=== PATIENT | female | born 1945 | race Caucasian/White ===

== ENCOUNTER 2018-09-19 00:40 | Emergency (ER) | payer OTHER, MEDICAID ==
[~2018-09-19] VITALS: Ht 154.9 cm; Wt 90.7 kg
[~2018-09-19 00:40] MED LIST: ATEN100T PO; IRBE150T48 PO; LORA10TA68 PO; MONT10TA22 PO; NAPR375T PO; [UNRECOGNIZED DRUG - OTHER] PO
[2018-09-19 00:45] VITALS: BP_SYST 162
[2018-09-19] MEDS ORDERED: NACL 0.9% 1,000 ML IV ONE (01:29)
[2018-09-19] MEDS ORDERED: MORPHINE 2 MG/ML INJ. SYRINGE IVP ONE (01:30)
[2018-09-19] MEDS ORDERED: ONDANSETRON HCL 4 MG/2 ML VIAL IVP ONE (01:30)
[2018-09-19 01:50] LABS: HEMATOCRIT 39.4 % (36-48); HEMOGLOBIN 12.6 g/dL (12.0-16.0); MEAN CORPUSCULAR HEMOGLOBIN 29 pg (27-31); MEAN CORPUSCULAR HGB CONC 32 % (32-36); MEAN CORPUSCULAR VOLUME 89 fL (79.0-98.0); PLATELET COUNT (AUTO) 425 K/uL (130-430); RED BLOOD CELL COUNT(AUTO) 4.42 MIL/uL (4.2-6.2); RED CELL DISTRIBUTION WIDTH 13.5 % (9.0-15.0); WHITE BLOOD COUNT (AUTO) 6.7 K/uL (4.8-10.8)
[2018-09-19] MEDS ORDERED: MORPHINE 4 MG/ML INJ. SYRINGE IVP ONE (02:00)
[2018-09-19 02:03] LABS: ANION GAP 6 (5-15); CHLORIDE 101 mmol/L (98-107); GLUCOSE 100 mg/dL (70-99); POTASSIUM 3.6 mmol/L (3.5-5.1); SODIUM SERUM 136 mmol/L (136-145); UREA NITROGEN, BLOOD 14 mg/dL (8-21)
[2018-09-19 02:08] LABS: ALANINE AMINOTRANSFERASE 14 U/L (12-78); ALBUMIN 3.1 g/dL (3.4-4.8); ASPARTATE AMINOTRANSFERASE 16 U/L (10-37); LIPASE 120 U/L (73-393); TOTAL BILIRUBIN 0.3 mg/dL (0.0-1.0)
[2018-09-19 02:14] LABS: BILIRUBIN,URINE NEGATIVE (NEGATIVE); BLOOD, URINE NEGATIVE (NEGATIVE); CLARITY/URINE CLEAR (CLEAR); COLOR,URINE YELLOW (YELLOW); GLUCOSE,URINE NEGATIVE (NEGATIVE); KETONES,URINE NEGATIVE (NEGATIVE); LEUKOCYTE ESTERASE ,URINE NEGATIVE (NEGATIVE); NITRITE, URINE NEGATIVE (NEGATIVE); PH,URINE 6.5 (5.0-8.0); PROTEIN URINE NEGATIVE (NEGATIVE); UROBILINOGEN,URINE 0.2 (0.2-1.0)
[2018-09-19 02:29] LABS: ATYPICAL LYMPHOCYTES % 0 % (0-0); BAND % (MANUAL) 0 % (0-6); BASOPHILS % (MANUAL) 0 % (0-2); EOSINOPHILS % (MANUAL) 2 % (0-7); LYMPHOCYTES % (MANUAL) 16 % (20-46); METAMYELOCYTES % 1 % (0-0); MONOCYTES % (MANUAL) 2 % (0-11)
[2018-09-19] MEDS ORDERED: PANTOPRAZOLE SODIUM 40 MG/VIAL (PROTONIX) IVP ONE (04:00)
[2018-09-19 04:20] VITALS: BP_SYST 173
== END 2018-09-19 04:20 | disposition home or self-care (01) ==
LOC: SED 00:40
DX: R10.13 Epigastric pain (principal); R11.0 Nausea; J45.909 Unspecified asthma, uncomplicated; R03.0 Elevated blood-pressure reading, without diagnosis of hypertension; Z79.899 Other long term (current) drug therapy
CPT/HCPCS: 36415; 74176; 80053; 81003; 83690; 85007; 85027; 96374; 96375; 99284; C9113; J2270; J2405; J7030

== ENCOUNTER 2019-09-11 07:39 | Emergency (ER) | payer OTHER, MEDICAID ==
[~2019-09-11] VITALS: Ht 152.4 cm; Wt 70.8 kg
[2019-09-11 08:10] VITALS: BP_SYST 178
--- NOTE | 2019-09-11 08:12 | NUR ---
Patient BIB BLS C/O mechanical fall. Patient A&Ox4, skin pink and warm, afebrile, right knee swelling and large hematoma, left knee swelling, pain 10/10, denies N/V/D. Patient states she is a resident of [facility], fell in shower this morning.
--- NOTE | 2019-09-11 08:14 | NUR ---
PATIENT PRESENTS TO THE ER WITH HX OF FALL TO TILE FLOOR TODAY AT 0500 WHEN SHE ATTEMPTED TO AMBULATE TO THE RESTROOM WITHOUT HER WALKER; PATIENT TRIPPED OVER HER OWN FEET AND WAS ABLE TO GET BACK TO HER FEET AND RETURN TO BED; SHE LATER ADVISED HER CAREGIVER WHO CALLED TRANSPORT TO ER BCLS SECONDARY TO BILATERAL KNEE INJURY; NO OTHER TRAUMA, NO OTHER REMARKABLE S/S; PATIENT TO ER #2 AT 0740
[2019-09-11] MEDS ORDERED: MORPHINE 4 MG/ML INJ. SYRINGE IM ONE (08:15)
--- NOTE | 2019-09-11 08:15 | NUR ---
ER Dr. Carranza at bedside examining patient.
--- NOTE | 2019-09-11 08:24 | NUR ---
Note pasquale in EDM - 09/11/19 at 0849 by JW medicated the pt dalia/ Bharat per MD order for temp of 101.4. Will reassess.
[2019-09-11 08:30] LABS: BASOPHILS % (AUTO) 0.4 % (0.0-2.0); EOSINOPHILS % (AUTO) 0.9 % (0.0-4.0); HEMATOCRIT 38.1 % (36-48); HEMOGLOBIN 12.4 g/dL (12.0-16.0); LYMPHOCYTES # (AUTO) 0.7 K/uL (1.0-5.5); LYMPHOCYTES % (AUTO) 11.6 % (20.5-51.5); MEAN CORPUSCULAR HEMOGLOBIN 29 pg (27-31); MEAN CORPUSCULAR HGB CONC 33 % (32-36); MEAN CORPUSCULAR VOLUME 91 fL (79.0-98.0); MONOCYTES # (AUTO) 0.3 K/uL (0.0-1.0); MONOCYTES % (AUTO) 5.8 % (1.7-9.3); NEUTROPHILS # (AUTO) 4.6 K/uL (1.8-7.7); NEUTROPHILS % (AUTO) 81.3 % (40.0-70.0); PLATELET COUNT (AUTO) 235 K/uL (130-430); RED BLOOD CELL COUNT(AUTO) 4.21 MIL/uL (4.2-6.2); RED CELL DISTRIBUTION WIDTH 16.8 % (9.0-15.0); WHITE BLOOD COUNT (AUTO) 5.6 K/uL (4.8-10.8)
--- NOTE | 2019-09-11 08:39 | NUR ---
Patient to CT with staff via [facility].
--- NOTE | 2019-09-11 08:44 | NUR ---
Karyna giordano in [facility] - 09/11/19 at 0858 by SDEDTD Patient to CT with staff via [facility].
--- NOTE | 2019-09-11 08:48 | NUR ---
Patient to ER bed 2 from radiology.
[2019-09-11 08:53] LABS: PROTHROMBIN TIME 10.2 SECS (9.5-12.5)
[2019-09-11 08:59] LABS: ANION GAP 5 (5-15); CALCIUM 9.2 mg/dL (8.4-11.0); CHLORIDE 99 mmol/L (98-107); CREATININE 0.87 mg/dL (0.55-1.30); GLUCOSE 101 mg/dL (70-99); POTASSIUM 3.9 mmol/L (3.5-5.1); SODIUM SERUM 131 mmol/L (136-145); UREA NITROGEN, BLOOD 21 mg/dL (8-21)
[2019-09-11 09:03] LABS: ALANINE AMINOTRANSFERASE 19 U/L (12-78); ALBUMIN 3.5 g/dL (3.4-4.8); ASPARTATE AMINOTRANSFERASE 22 U/L (10-37); TOTAL BILIRUBIN 0.4 mg/dL (0.0-1.0)
[2019-09-11] MEDS ORDERED: ONDANSETRON HCL 4 MG/2 ML VIAL IVP ONE (10:00)
[2019-09-11] MEDS ORDERED: MORPHINE 2 MG/ML INJ. SYRINGE IVP ONE (10:00)
[2019-09-11 10:50] VITALS: BP_SYST 168
--- NOTE | 2019-09-11 10:50 | NUR ---
BELINDA DENNISON [place] DIRECTOR CONTACTED, WILL BE ON WAY YO PICK-UP PATIENT FOR DISCHARGE
--- NOTE | 2019-09-11 10:50 | NUR ---
Patient given written and verbal discharge instructions and verbalizes understanding. ER MD discussed with patient the results and treatment provided. Patient in stable condition. ID arm band removed. IV catheter removed intact and dressing applied, no active bleeding. Rx of NORCO & MOTRIN given. Patient educated on pain management and to follow up with PMD. Pain Scale 3/10 TOLERABLE FOR PATIENT. Opportunity for questions provided and answered. Medication side effect fact sheet provided.
== END 2019-09-11 10:50 | disposition home or self-care (01) ==
LOC: SED 07:39
DX: M25.461 Effusion, right knee (principal); J45.909 Unspecified asthma, uncomplicated; Z88.6 Allergy status to analgesic agent; Z79.899 Other long term (current) drug therapy
CPT/HCPCS: 36415; 73700; 80053; 85025; 85610; 85730; 96374; 96375; 96376; 99284; J2270 ×2; J2405

== ENCOUNTER 2019-10-11 15:40 | Inpatient (IN) | payer OTHER, MEDICAID ==
[~2019-10-11] VITALS: Ht 152.4 cm; Wt 70.8 kg
[2019-10-11 15:40] VITALS: BP_SYST 122
[2019-10-11] MEDS ORDERED: CEFAZOLIN 1 GM IVPB PREMIX 50 ML IV ONE (17:15)
[2019-10-11] MEDS ORDERED: VANCOMYCIN HCL 1,000 MG in NS 250 ML IV ONE (17:30)
[2019-10-11] MEDS ORDERED: VANCOMYCIN HCL 1000 MG/VIAL IV ONE ×2 (18:07→18:11)
[2019-10-11 18:11] LABS: ANION GAP 6 (5-15); CALCIUM 8.4 mg/dL (8.4-11.0); CHLORIDE 106 mmol/L (98-107); CREATININE 0.94 mg/dL (0.55-1.30); GLUCOSE 91 mg/dL (70-99); POTASSIUM 3.9 mmol/L (3.5-5.1); SODIUM SERUM 140 mmol/L (136-145); UREA NITROGEN, BLOOD 20 mg/dL (8-21)
[2019-10-11 18:12] LABS: BASOPHILS % (AUTO) 0.5 % (0.0-2.0); EOSINOPHILS # (AUTO) 0.1 K/uL (0.0-0.4); EOSINOPHILS % (AUTO) 1.5 % (0.0-4.0); HEMATOCRIT 31.1 % (36-48); HEMOGLOBIN 10.2 g/dL (12.0-16.0); LYMPHOCYTES # (AUTO) 0.8 K/uL (1.0-5.5); LYMPHOCYTES % (AUTO) 13.6 % (20.5-51.5); MEAN CORPUSCULAR HEMOGLOBIN 30 pg (27-31); MEAN CORPUSCULAR HGB CONC 33 % (32-36); MEAN CORPUSCULAR VOLUME 91 fL (79.0-98.0); MONOCYTES # (AUTO) 0.5 K/uL (0.0-1.0); MONOCYTES % (AUTO) 7.8 % (1.7-9.3); NEUTROPHILS # (AUTO) 4.6 K/uL (1.8-7.7); NEUTROPHILS % (AUTO) 76.6 % (40.0-70.0); PLATELET COUNT (AUTO) 222 K/uL (130-430); RED BLOOD CELL COUNT(AUTO) 3.42 MIL/uL (4.2-6.2); RED CELL DISTRIBUTION WIDTH 15.6 % (9.0-15.0)
[2019-10-11 18:22] LABS: ALANINE AMINOTRANSFERASE 18 U/L (12-78); ALBUMIN 2.8 g/dL (3.4-4.8); ASPARTATE AMINOTRANSFERASE 26 U/L (10-37); FREE T4 (FREE THYROXINE) 1.1 ng/dl (0.8-1.5); TOTAL BILIRUBIN 0.5 mg/dL (0.0-1.0)
[2019-10-11 18:30] LABS: PROTHROMBIN TIME 10.4 SECS (9.5-12.5)
[2019-10-11 20:08] VITALS: BP_SYST 135
[2019-10-12] VITALS (7 sets, daily range): BP systolic 97–144
[2019-10-12] MEDS ORDERED: ALBUTEROL SULFATE 0.083% 2.5 MG/3 ML VIAL.NEB INH PRN
[2019-10-12] MEDS ORDERED: ONDANSETRON HCL 4 MG/2 ML VIAL IVP PRN
[2019-10-12] MEDS: HYDROcodone/ACETAMIN 5-325 MG TAB (NORCO/ VICODIN) PO PRN ×3 (01:19→21:35)
[2019-10-12] MEDS ORDERED: PIPERACILLIN/TAZOBACTAM 3.375 GM/VIAL (ZOSYN) IV ONE (01:59)
[2019-10-12] MEDS: PIPERACILLIN/TAZO 3.375/DEX-IS 50 ML IV SCH ×2 (02:18→06:28)
[2019-10-12] MEDS: ATENOLOL 50 MG TABLET (TENORMIN) PO SCH (09:00)
[2019-10-12] MEDS ORDERED: IRBESARTAN 150 MG TABLET (AVAPRO) PO SCH (09:00)
[2019-10-12] MEDS: LOSARTAN POTASSIUM 50 MG TABLET (COZAAR) PO SCH (09:31)
[2019-10-12] MEDS: LORATADINE 10 MG TABLET PO SCH (09:31)
[2019-10-12] MEDS: ENOXAPARIN SODIUM 40 MG/0.4 ML SYRINGE SUBCUT SCH (09:32)
[2019-10-12 09:47] LABS: BASOPHILS % (AUTO) 0.8 % (0.0-2.0); EOSINOPHILS # (AUTO) 0.1 K/uL (0.0-0.4); EOSINOPHILS % (AUTO) 2.3 % (0.0-4.0); HEMATOCRIT 29.4 % (36-48); HEMOGLOBIN 9.6 g/dL (12.0-16.0); LYMPHOCYTES # (AUTO) 0.6 K/uL (1.0-5.5); LYMPHOCYTES % (AUTO) 14.3 % (20.5-51.5); MEAN CORPUSCULAR HEMOGLOBIN 30 pg (27-31); MEAN CORPUSCULAR HGB CONC 33 % (32-36); MEAN CORPUSCULAR VOLUME 91 fL (79.0-98.0); MONOCYTES # (AUTO) 0.4 K/uL (0.0-1.0); MONOCYTES % (AUTO) 9.2 % (1.7-9.3); NEUTROPHILS # (AUTO) 3.3 K/uL (1.8-7.7); NEUTROPHILS % (AUTO) 73.4 % (40.0-70.0); PLATELET COUNT (AUTO) 190 K/uL (130-430); RED BLOOD CELL COUNT(AUTO) 3.23 MIL/uL (4.2-6.2); WHITE BLOOD COUNT (AUTO) 4.5 K/uL (4.8-10.8)
[2019-10-12 10:20] LABS: ALANINE AMINOTRANSFERASE 12 U/L (12-78); ALBUMIN 2.4 g/dL (3.4-4.8); ANION GAP 9 (5-15); ASPARTATE AMINOTRANSFERASE 22 U/L (10-37); CALCIUM 8.4 mg/dL (8.4-11.0); CHLORIDE 107 mmol/L (98-107); CREATININE 1.04 mg/dL (0.55-1.30); GLUCOSE 116 mg/dL (70-99); POTASSIUM 3.6 mmol/L (3.5-5.1); SODIUM SERUM 140 mmol/L (136-145); TOTAL BILIRUBIN 0.4 mg/dL (0.0-1.0); UREA NITROGEN, BLOOD 17 mg/dL (8-21)
[2019-10-12] MEDS: PIPERACILLIN/TAZOBACTAM 2.25 GM/ D5W 50 ML IV SCH ×4 (11:48→17:36)
[2019-10-12] MEDS: MONTELUKAST 10 MG TABLET PO SCH (21:34)
[2019-10-13] MEDS: PIPERACILLIN/TAZOBACTAM 2.25 GM/ D5W 50 ML IV SCH ×4 (00:45→05:17)
[2019-10-13 00:58] VITALS: BP_SYST 100
[2019-10-13 08:00] VITALS: BP_SYST 143
[2019-10-13 08:20] LABS: BASOPHILS % (AUTO) 0.5 % (0.0-2.0); EOSINOPHILS # (AUTO) 0.3 K/uL (0.0-0.4); EOSINOPHILS % (AUTO) 4.4 % (0.0-4.0); HEMATOCRIT 31.7 % (36-48); HEMOGLOBIN 10.4 g/dL (12.0-16.0); LYMPHOCYTES # (AUTO) 0.7 K/uL (1.0-5.5); MEAN CORPUSCULAR HEMOGLOBIN 30 pg (27-31); MEAN CORPUSCULAR HGB CONC 33 % (32-36); MEAN CORPUSCULAR VOLUME 92 fL (79.0-98.0); MONOCYTES # (AUTO) 0.6 K/uL (0.0-1.0); MONOCYTES % (AUTO) 10.1 % (1.7-9.3); NEUTROPHILS # (AUTO) 4.1 K/uL (1.8-7.7); PLATELET COUNT (AUTO) 199 K/uL (130-430); RED BLOOD CELL COUNT(AUTO) 3.46 MIL/uL (4.2-6.2); WHITE BLOOD COUNT (AUTO) 5.7 K/uL (4.8-10.8)
[2019-10-13 08:35] LABS: ANION GAP 5 (5-15); C-REACTIVE PROTEIN QUANT 3.2 mg/dL (0-0.5); CALCIUM 8.9 mg/dL (8.4-11.0); CHLORIDE 104 mmol/L (98-107); GLUCOSE 91 mg/dL (70-99); POTASSIUM 3.7 mmol/L (3.5-5.1); SODIUM SERUM 136 mmol/L (136-145); UREA NITROGEN, BLOOD 18 mg/dL (8-21)
[2019-10-13] MEDS: ATENOLOL 50 MG TABLET (TENORMIN) PO SCH (08:44)
[2019-10-13] MEDS: LORATADINE 10 MG TABLET PO SCH (08:45)
[2019-10-13] MEDS: LOSARTAN POTASSIUM 50 MG TABLET (COZAAR) PO SCH (08:45)
[2019-10-13] MEDS: ENOXAPARIN SODIUM 40 MG/0.4 ML SYRINGE SUBCUT SCH (08:47)
[2019-10-13 11:02] LABS: ERYTHROCYTE SEDIMENTATION RATE 42 MM/HR (0-20)
[2019-10-13 12:27] VITALS: BP_SYST 110
[2019-10-13] MEDS: HYDROcodone/ACETAMIN 5-325 MG TAB (NORCO/ VICODIN) PO PRN ×2 (13:08→20:29)
[2019-10-13] MEDS: ceFAZolin SODIUM 1 GM in D5W 50 ML IV SCH ×2 (13:59→20:28)
[2019-10-13 16:51] VITALS: BP_SYST 116
[2019-10-13 20:00] VITALS: BP_SYST 95
[2019-10-13] MEDS: MONTELUKAST 10 MG TABLET PO SCH (20:28)
[2019-10-14 00:40] VITALS: BP_SYST 120
[2019-10-14] MEDS: ceFAZolin SODIUM 1 GM in D5W 50 ML IV SCH ×2 (04:51→14:02)
[2019-10-14 08:00] VITALS: BP_SYST 164
[2019-10-14] MEDS: LOSARTAN POTASSIUM 50 MG TABLET (COZAAR) PO SCH (09:31)
[2019-10-14] MEDS: LORATADINE 10 MG TABLET PO SCH (09:31)
[2019-10-14] MEDS: ATENOLOL 50 MG TABLET (TENORMIN) PO SCH (09:32)
[2019-10-14] MEDS: ENOXAPARIN SODIUM 40 MG/0.4 ML SYRINGE SUBCUT SCH (09:32)
[2019-10-14 11:07] VITALS: BP_SYST 107
[2019-10-14 15:14] VITALS: BP_SYST 118
[2019-10-14 19:49] VITALS: BP_SYST 118
[2019-10-14 20:00] VITALS: BP_SYST 127
== END 2019-10-14 18:35 | DRG 602 ==
LOC: SED 15:40 → SMU 18:12
PROVIDERS: ADMIT Internal Medicine Hospice and Palliative Medicine; ATTEND Internal Medicine Hospice and Palliative Medicine
DX: L03.115 Cellulitis of right lower limb (principal); E43 Unspecified severe protein-calorie malnutrition; E66.9 Obesity, unspecified; B95.8 Unspecified staphylococcus as the cause of diseases classified elsewhere; E78.5 Hyperlipidemia, unspecified; J44.9 Chronic obstructive pulmonary disease, unspecified; I10 Essential (primary) hypertension; D64.9 Anemia, unspecified; W18.30XA Fall on same level, unspecified, initial encounter; Y93.89 Activity, other specified; Y92.89 Other specified places as the place of occurrence of the external cause; Y99.8 Other external cause status; Z82.49 Family history of ischemic heart disease and other diseases of the circulatory system; Z68.30 Body mass index [BMI] 30.0-30.9, adult; Z88.6 Allergy status to analgesic agent; Z79.899 Other long term (current) drug therapy
CPT/HCPCS: 36415; 71045; 73564; 74018; 80048; 80053; 83605; 83880; 84439; 84484; 85025; 85610-TC; 85651-TC; 86140; 87040-TC; 87081; 93005; 93970; 96365; 96366; 96367; 99285; J0690; J1650; J2543; J3370; J7060

== ENCOUNTER 2020-06-04 12:29 | Observation (INO) | payer OTHER, MEDICAID, SELFPAY ==
[~2020-06-04] VITALS: Ht 154.9 cm; Wt 70.8 kg
[2020-06-04 12:29] VITALS: BP_SYST 184
[~2020-06-04 12:29] MED LIST changes: -NAPR375T PO
[2020-06-04 13:02] LABS: BASOPHILS % (AUTO) 0.5 % (0.0-2.0); EOSINOPHILS # (AUTO) 0.1 K/uL (0.0-0.4); EOSINOPHILS % (AUTO) 1.5 % (0.0-4.0); HEMATOCRIT 37.1 % (36-48); HEMOGLOBIN 12.3 g/dL (12.0-16.0); LYMPHOCYTES % (AUTO) 23.5 % (20.5-51.5); MEAN CORPUSCULAR HEMOGLOBIN 32 pg (27-31); MEAN CORPUSCULAR HGB CONC 33 % (32-36); MEAN CORPUSCULAR VOLUME 95 fL (79.0-98.0); MONOCYTES # (AUTO) 0.4 K/uL (0.0-1.0); NEUTROPHILS # (AUTO) 2.9 K/uL (1.8-7.7); NEUTROPHILS % (AUTO) 65.5 % (40.0-70.0); PLATELET COUNT (AUTO) 194 K/uL (130-430); RED CELL DISTRIBUTION WIDTH 14.8 % (9.0-15.0); WHITE BLOOD COUNT (AUTO) 4.4 K/uL (4.8-10.8)
[2020-06-04 13:07] LABS: ANION GAP 8 (5-15); CALCIUM 8.9 mg/dL (8.4-11.0); CHLORIDE 102 mmol/L (98-107); CREATININE 0.98 mg/dL (0.55-1.30); GLUCOSE 78 mg/dL (70-99); POTASSIUM 3.9 mmol/L (3.5-5.1); SODIUM SERUM 137 mmol/L (136-145); UREA NITROGEN, BLOOD 27 mg/dL (8-21)
[2020-06-04 13:19] LABS: ALANINE AMINOTRANSFERASE 23 U/L (12-78); ALBUMIN 3.5 g/dL (3.4-4.8); ASPARTATE AMINOTRANSFERASE 31 U/L (10-37); TOTAL BILIRUBIN 0.4 mg/dL (0.0-1.0)
[2020-06-04] MEDS ORDERED: CLOT15CR5 TP (14:31)
[2020-06-04] MEDS ORDERED: METH750T3 PO (14:31)
[2020-06-04] MEDS ORDERED: ESCI10TA PO (14:31)
[2020-06-04] MEDS ORDERED: LOSA25TA3 PO (14:31)
[2020-06-04] MEDS ORDERED: TOPXL100 PO (14:31)
[2020-06-04] MEDS ORDERED: FLO44 INH (14:31)
[2020-06-04] MEDS ORDERED: LIP40 PO (14:31)
[2020-06-04] MEDS ORDERED: PANT20TA2 PO (14:31)
[2020-06-04] MEDS ORDERED: IBUP-1971 PO (14:31)
[2020-06-04] MEDS ORDERED: LORazepam 2 MG/ML VIAL IVP PRN (14:45)
[2020-06-04 15:09] LABS: BARBITURATE, URINE NEGATIVE (NEG <=200); BENZODIAZEPINE, URINE NEGATIVE (NEG <=150); CANNABINOID, URINE NEGATIVE (NEG <=50); COCAINE, URINE NEGATIVE (NEG <=150); METHAMPHETAMINES SCREEN,URINE NEGATIVE (NEG <=500); OPIATE, URINE NEGATIVE (NEG <=100); PHENCYCLIDINE SCREEN,URINE NEGATIVE (NEG <=25); UR TRICYCLIC ANTIDEPRESSANTS NEGATIVE (NEG <=300); URINE AMPHETAMINE NEGATIVE (NEG <=500); URINE METHADONE NEGATIVE (NEG <=200); URINE OXYCODONE SCREEN NEGATIVE (NEG <=100); URINE PROPOXYPHENE SCREEN NEGATIVE (NEG <=300)
[2020-06-04 15:25] VITALS: BP_SYST 158
[2020-06-04 16:07] VITALS: BP_SYST 105
[2020-06-04] MEDS ORDERED: FLU VACC QS2020-21(65UP)/PF 0.7 ML/SYRINGE I.M. PRN (16:45)
[2020-06-04] MEDS ORDERED: HYDROcodone/ACETAMIN 5-325 MG TAB (NORCO/ VICODIN) PO PRN (18:00)
[2020-06-04] MEDS ORDERED: ACETAMINOPHEN 500 MG TABLET PO PRN (18:00)
[2020-06-04 19:00] VITALS: BP_SYST 156
[2020-06-04 20:00] VITALS: BP_SYST 156
[2020-06-04] MEDS ORDERED: CITALOPRAM HYDROBROMIDE 20 MG TABLET PO SCH (21:00)
[2020-06-04] MEDS: levETIRAcetam 500 MG TABLET PO SCH (21:07)
[2020-06-05] MEDS: HYDROcodone/ACETAMIN 10-325 MG TAB PO PRN ×2 (00:36→10:07)
[2020-06-05] MEDS: D5/0.45 NS 1,000 ML IV SCH ×2 (00:38→10:11)
[2020-06-05 01:17] VITALS: BP_SYST 142
[2020-06-05 07:30] VITALS: BP_SYST 123; BP_SYST 125
[2020-06-05] MEDS: levETIRAcetam 500 MG TABLET PO SCH (08:45)
[2020-06-05] MEDS ORDERED: MONTELUKAST 10 MG TABLET PO SCH (09:00)
[2020-06-05] MEDS ORDERED: METOPROLOL SUCCINATE 50 MG TAB.SR.24H (TOPROL XL) PO SCH (09:00)
[2020-06-05] MEDS ORDERED: ATORVASTATIN 20 MG TABLET PO SCH (09:00)
[2020-06-05] MEDS ORDERED: LOSARTAN POTASSIUM 25 MG TABLET PO SCH (09:00)
[2020-06-05 12:08] VITALS: BP_SYST 98
[2020-06-05] MEDS ORDERED: LEVE1000 PO (13:57)
[2020-06-05 14:12] VITALS: BP_SYST 136
[2020-06-05 16:08] VITALS: BP_SYST 96
== END 2020-06-05 16:57 | disposition home or self-care (01) ==
LOC: SED 12:29 → STU 14:15
PROVIDERS: ADMIT Internal Medicine Hospice and Palliative Medicine; ATTEND Internal Medicine Hospice and Palliative Medicine
DX: R56.9 Unspecified convulsions (principal); Z20.828 Contact with and (suspected) exposure to other viral communicable diseases; I10 Essential (primary) hypertension; J44.9 Chronic obstructive pulmonary disease, unspecified; E78.00 Pure hypercholesterolemia, unspecified; F32.9 Major depressive disorder, single episode, unspecified; Z96.659 Presence of unspecified artificial knee joint; Z79.899 Other long term (current) drug therapy; Z23 Encounter for immunization
CPT/HCPCS: 36415; 70450; 71045; 80053; 80307; 82550; 84484; 85025; 87426; 90471; 90686; 93005; 93306; 95816; 96360; 96361; 97112; 97162; 99285; G0378; J2060

== ENCOUNTER 2023-10-14 00:12 | Emergency (ER) | payer OTHER, MEDICAID ==
[~2023-10-14] VITALS: Ht 154.9 cm; Wt 63.5 kg
[~2023-10-14 00:12] MED LIST changes: -ATEN100T PO; +CLOT15CR5 TP; +ESCI10TA PO; +FLO44 INH; +IBUP-1971 PO; -IRBE150T48 PO; +LEVE1000 PO; +LIP40 PO; -LORA10TA68 PO; +LOSA-412 PO; +METH-634 PO; +MONT-47 PO; -MONT10TA22 PO; +PANT20TA2 PO; +TOPXL100 PO; -[UNRECOGNIZED DRUG - OTHER] PO
[2023-10-14 00:15] VITALS: BP_SYST 151; PULSE 69; RESP 18; TEMP 98; O2SAT 96
[2023-10-14] MEDS: ACETAMINOPHEN 500 MG TABLET PO ONE (00:59)
[2023-10-14] MEDS: DIPHTH,PERTUSS(ACELL),TET VAC 0.5 ML VIAL (Tdap) I.M. ONE (01:04)
[2023-10-14] MEDS ORDERED: BACITRACIN 1 GM OINT TP ONE (01:26)
[2023-10-14] MEDS ORDERED: BACI15OI13 TP (01:32)
[2023-10-14] MEDS ORDERED: ACET-2634 PO (01:32)
[2023-10-14] MEDS: BACITRACIN ZINC 15 GM TOPICAL OINTMENT TP SCH (01:33)
[2023-10-14 04:02] VITALS: BP_SYST 131; PULSE 51; RESP 17; TEMP 97.9; O2SAT 95
== END 2023-10-14 04:02 | disposition home or self-care (01) ==
LOC: SED 00:12
DX: S00.12XA Contusion of left eyelid and periocular area, initial encounter (principal); S00.33XA Contusion of nose, initial encounter; R04.0 Epistaxis; J44.9 Chronic obstructive pulmonary disease, unspecified; I10 Essential (primary) hypertension; E78.5 Hyperlipidemia, unspecified; Z88.6 Allergy status to analgesic agent; Z79.899 Other long term (current) drug therapy; W06.XXXA Fall from bed, initial encounter; Y93.89 Activity, other specified; Y92.89 Other specified places as the place of occurrence of the external cause; Y99.8 Other external cause status
CPT/HCPCS: 70450-TC; 70486; 90715; 99285

== ENCOUNTER 2023-12-16 00:52 | Emergency (ER) | payer OTHER, MEDICAID ==
[~2023-12-16] VITALS: Ht 152.4 cm; Wt 63.5 kg
[~2023-12-16 00:52] MED LIST changes: +ACET-2634 PO; +BACI15OI13 TP
[2023-12-16 00:57] VITALS: BP_SYST 165; PULSE 52; RESP 18; TEMP 97.4; O2SAT 100
[2023-12-16 02:26] LABS: BILIRUBIN,URINE NEGATIVE (NEGATIVE); BLOOD, URINE 1+ (NEGATIVE); CLARITY/URINE CLEAR (CLEAR); COLOR,URINE YELLOW (YELLOW); GLUCOSE,URINE NEGATIVE (NEGATIVE); KETONES,URINE NEGATIVE (NEGATIVE); LEUKOCYTE ESTERASE ,URINE 3+ (NEGATIVE); NITRITE, URINE POSITIVE (NEGATIVE); PROTEIN URINE TRACE (NEGATIVE); UROBILINOGEN,URINE 0.2 (0.2-1.0)
[2023-12-16 02:34] LABS: BACTERIA,URINE MODERATE /HPF (None Seen); RBC,URINE >100 /HPF (0-3); WBC,URINE >100 /HPF (0-3)
[2023-12-16] MEDS ORDERED: CEPH250C PO (03:10)
[2023-12-16] MEDS: cephALEXin 500 MG CAPSULE PO ONE (03:42)
[2023-12-16 03:44] VITALS: TEMP 98.1
[2023-12-16 05:46] VITALS: BP_SYST 144; PULSE 79; RESP 20; O2SAT 98
== END 2023-12-16 05:45 ==
LOC: SED 00:52
DX: S01.312A Laceration without foreign body of left ear, initial encounter (principal); N39.0 Urinary tract infection, site not specified; J44.9 Chronic obstructive pulmonary disease, unspecified; I10 Essential (primary) hypertension; E78.5 Hyperlipidemia, unspecified; Z88.6 Allergy status to analgesic agent; Z79.899 Other long term (current) drug therapy; Z79.2 Long term (current) use of antibiotics; W18.11XA Fall from or off toilet without subsequent striking against object, initial encounter; Y93.89 Activity, other specified; Y92.121 Bathroom in nursing home as the place of occurrence of the external cause; Y99.8 Other external cause status
CPT/HCPCS: 70450-TC; 72125-TC; 81000; 81001; 81015; 87086; 87186; 99284

== ENCOUNTER 2024-06-12 20:20 | Emergency (ER) | payer OTHER, MEDICAID ==
[~2024-06-12] VITALS: Ht 152.4 cm; Wt 65.8 kg
[~2024-06-12 20:20] MED LIST changes: +APIX5TAB PO; +ATOR40TA68 PO; -BACI15OI13 TP; +CICL544C; +CLOB15CR4 TP; -CLOT15CR5 TP; +ERGO1250 PO; +ESCI20TA38 PO; -IBUP-1971 PO; +KETO60CR2 TP; +LEVE10006 PO; +LINE600T12 PO; +LOSA25TA18 PO; -METH-634 PO; +MIRT-91 PO; +MONT-40 PO; -PANT20TA2 PO; +PANT40TA45 PO; +SULF1TAB48 PO; -TOPXL100 PO
[2024-06-12 20:25] VITALS: BP_SYST 92; PULSE 77; RESP 16; TEMP 97.8; O2SAT 95
[2024-06-12] MEDS: PIPERACILLIN/TAZO 3.375 GM in NS 50 ML IV ONE (21:15)
[2024-06-12 21:48] LABS: BASOPHILS % (AUTO) 0.3 % (0.0-2.0); EOSINOPHILS # (AUTO) 0.2 K/uL (0.0-0.4); EOSINOPHILS % (AUTO) 5.7 % (0.0-4.0); HEMATOCRIT 30.7 % (36-48); HEMOGLOBIN 10.6 g/dL (12.0-16.0); LYMPHOCYTES # (AUTO) 0.9 K/uL (1.0-5.5); LYMPHOCYTES % (AUTO) 20.5 % (20.5-51.5); MEAN CORPUSCULAR HEMOGLOBIN 32 pg (27-31); MEAN CORPUSCULAR HGB CONC 35 % (32-36); MEAN CORPUSCULAR VOLUME 93 fL (79.0-98.0); MONOCYTES # (AUTO) 0.5 K/uL (0.0-1.0); MONOCYTES % (AUTO) 10.7 % (1.7-9.3); NEUTROPHILS # (AUTO) 2.7 K/uL (1.8-7.7); NEUTROPHILS % (AUTO) 62.8 % (40.0-70.0); PLATELET COUNT (AUTO) 253 K/uL (130-430); RED BLOOD CELL COUNT(AUTO) 3.32 MIL/uL (4.2-6.2); RED CELL DISTRIBUTION WIDTH 16.5 % (9.0-15.0); WHITE BLOOD COUNT (AUTO) 4.3 K/uL (4.8-10.8)
[2024-06-12 21:53] LABS: ANION GAP 8 (5-15); CALCIUM 9.3 mg/dL (8.4-11.0); CARBON DIOXIDE 28 mmol/L (23-29); CHLORIDE 109 mmol/L (98-107); CREATININE 0.96 mg/dL (0.55-1.30); GLUCOSE 118 mg/dL (74-106); POTASSIUM 3.6 mmol/L (3.5-5.1); SODIUM SERUM 145 mmol/L (136-145); UREA NITROGEN, BLOOD 19 mg/dL (8-21)
[2024-06-12] MEDS ORDERED: MORPHINE 2 MG/ML INJ. SYRINGE IVP PRN ×2 (22:00)
[2024-06-12] MEDS ORDERED: IPRATROPIUM/ALBUTEROL SULFATE 3 ML AMPUL.NEB (DUONEB) INH PRN (22:00)
[2024-06-12] MEDS ORDERED: MUPIROCIN 2% TOPICAL OINTMENT 22 GM NS PRN (22:00)
[2024-06-12] MEDS ORDERED: LINEZOLID 300 ML IV SCH (22:00)
[2024-06-12] MEDS ORDERED: NACL 0.9% 1,000 ML IV SCH (22:00)
[2024-06-12] MEDS ORDERED: ZOLPIDEM TARTRATE 5 MG TABLET PO PRN (22:00)
[2024-06-12] MEDS ORDERED: ONDANSETRON HCL 4 MG/2 ML VIAL IVP PRN (22:00)
[2024-06-12] MEDS ORDERED: DOCUSATE SODIUM 100 MG CAPSULE PO PRN (22:00)
[2024-06-12] MEDS ORDERED: ACETAMINOPHEN 325 MG TABLET PO PRN (22:00)
[2024-06-12] MEDS ORDERED: LORazepam 2 MG/ML VIAL IVP PRN (22:00)
[2024-06-12] MEDS ORDERED: POTASSIUM CHLORIDE 20 MEQ TABLET.ER PO PRN (22:00)
[2024-06-12] MEDS ORDERED: MAGNESIUM SULFATE 50 ML IV PRN (22:00)
[2024-06-13] MEDS ORDERED: LOSARTAN POTASSIUM 25 MG TABLET PO SCH (09:00)
[2024-06-13] MEDS ORDERED: ATORVASTATIN 20 MG TABLET PO SCH (09:00)
[2024-06-13] MEDS ORDERED: APIXABAN PO SCH (09:00)
[2024-06-13] MEDS ORDERED: levETIRAcetam 500 MG TABLET PO SCH (09:00)
[2024-06-13] MEDS ORDERED: MONTELUKAST 10 MG TABLET PO SCH (18:00)
[2024-06-13] MEDS ORDERED: ESCITALOPRAM OXALATE 10 MG TABLET PO SCH (21:00)
== END 2024-06-12 22:00 | disposition home or self-care (01) ==
LOC: SED 20:20
DX: L03.115 Cellulitis of right lower limb (principal); R60.0 Localized edema; I10 Essential (primary) hypertension; E78.5 Hyperlipidemia, unspecified; J45.909 Unspecified asthma, uncomplicated; Z88.6 Allergy status to analgesic agent; Z79.01 Long term (current) use of anticoagulants; Z79.51 Long term (current) use of inhaled steroids; Z79.899 Other long term (current) drug therapy
CPT/HCPCS: 99285; 93970; 96365; 80048; 83880; 85025; 36415; J2543; 99284